=== PATIENT | male | born 1955 | race Caucasian/White ===

== ENCOUNTER 2023-06-07 12:11 | Emergency (ER) | payer BC, OTHER ==
[2023-06-07 12:14] VITALS: BP 115/62; PULSE 65; RESP 18; TEMP 97.6; BMI 27.8
== END 2023-06-07 15:17 | disposition home or self-care (01) ==
LOC: JERFT 12:11
DX: S93.125A Dislocation of metatarsophalangeal joint of left lesser toe(s), initial encounter (principal); S60.042A Contusion of left ring finger without damage to nail, initial encounter; W11.XXXA Fall on and from ladder, initial encounter
CPT/HCPCS: 73140-TC-LT-FY; 73630-TC-LT; 99284-25